=== PATIENT | female | born 1970 | race Caucasian/White ===

== ENCOUNTER → 2016-06-29 | Outpatient (CLI) | payer BC | LOC: MAMO 13:57 | DX: Z12.31 Encounter for screening mammogram for malignant neoplasm of breast (principal) | CPT/HCPCS: G0202 ==

== ENCOUNTER → 2016-09-28 | Outpatient (CLI) | payer BC | LOC: RAD 14:50 | DX: M25.511 Pain in right shoulder (principal) | CPT/HCPCS: 73030 ==

== ENCOUNTER → 2020-09-24 | Day surgery (SDC) | payer BC ==
[~2020-09-24] MED LIST: BUSPIRONE HCL15 MG PO; CYMBALTA60 MG PO; HYDROCODON-ACE1 EAC4 PO; IBUPROFEN200 MG PO; LISINOPRIL10 MG PO; METOPROLOL PO; NAPROSYN EC 50500 MG PO; PEPCID20 MG PO; PROTONIX 40 MG40 M1 PO; TYLENOL EXTRA500 MG PO; VITAMIN D21250 MCG PO; WELLBUTRIN SR150 MG PO; ZOFRAN 4 MG TAB4 MG PO
[2020-09-24 06:47] LABS: HEMOGLOBIN 13.6 gm/dl (12.3-15.3); RED BLOOD COUNT 4.18 M/UL (4.00-5.10); WHITE BLOOD COUNT 4.8 K/UL (4.5-11.0)
[2020-09-24 07:43] LABS: BUN/CREATININE RATIO 12 (0-10)
== END | disposition home or self-care (01) ==
LOC: OR 06:13
PROVIDERS: Obstetrics & Gynecology
DX: N83.01 Follicular cyst of right ovary (principal); K21.9 Gastro-esophageal reflux disease without esophagitis; I10 Essential (primary) hypertension; M79.7 Fibromyalgia; F41.8 Other specified anxiety disorders; G43.909 Migraine, unspecified, not intractable, without status migrainosus; E55.9 Vitamin D deficiency, unspecified; Z97.5 Presence of (intrauterine) contraceptive device; Z20.822 Contact with and (suspected) exposure to COVID-19
CPT/HCPCS: 36415; 80048; 81001; 84703; 85025; J0690; J1100; J1885; J2001; J2250; J2405; J2704; J2710; J3010; J7120; U0002

== ENCOUNTER → 2021-08-04 | Outpatient (CLI) | payer BC | LOC: MAMO 07-22 11:00 | DX: Z12.31 Encounter for screening mammogram for malignant neoplasm of breast (principal) | CPT/HCPCS: 77063; 77067 ==